=== PATIENT | female | born 1990 | race Caucasian/White ===

== ENCOUNTER 2016-12-19 | Emergency (ER) | payer OTHER | END 2016-12-19 22:20 | disposition home or self-care (01) ==

== ENCOUNTER 2017-04-28 15:27 | Emergency (ER) | payer OTHER ==
[2017-04-28 15:34] VITALS: BP 148/91
--- NOTE | 2017-04-28 15:38 | ED Physician Documentation ---
PD HPI ABD PAIN - Stated complaint Stated Complaint: FREQ URINATION/31WK OB - Chief complaint Chief Complaint: UTI - History obtained from History obtained from: Patient - History of Present Illness Timing - onset: Other (This is a G1 in third trimester with urinary frequency and dysuria and burning since last night without associated fever, flank pain, or significant nausea. No bleeding.) Review of Systems Constitutional: reports: Reviewed and negative Cardiac: reports: Reviewed and negative Respiratory: reports: Reviewed and negative PD PAST MEDICAL HISTORY - Past Medical History Respiratory: Asthma - Past Surgical History Past Surgical History: No - Present Medications Home Medications: Ambulatory Orders Medication Instructions Recorded Confirmed Nitrofurantoin Monohyd/M-Cryst 1 tab PO BID 5 Days 04/28/17 [Macrobid 100 mg Capsule] Pnv95/Ferrous Fumarate/FA 1 tab PO DAILY 04/28/17 04/28/17 [ Tablet] - Allergies Allergies/Adverse Reactions: Allergies Allergy/AdvReac Type Severity Reaction Status Date / Time No Known Drug Allergies Allergy Verified 12/19/16 21:17 - Social History Does the pt smoke?: No Smoking Status: Never smoker Does the pt drink ETOH?: No Does the pt have substance abuse?: No - Immunizations Immunizations are current?: Yes - POLST Patient has POLST: No PD ED PE NORMAL - Vitals Vital signs reviewed: Yes - General General: Alert and oriented X 3, No acute distress - Abdomen Abdomen: Normal bowel sounds, Soft, Non tender, Other (Gravid with IUP on ultrasound, heart rate 130) - Neuro Neuro: Alert and oriented X 3, Normal speech - Psych Psych: Normal mood, Normal affect Results - Vitals Vitals: Vital Signs - 24 hr 04/28/17 15:32 Temperature 36.1 C L Heart Rate 65 Respiratory 20 Rate Blood Pressure 148/91 H O2 Saturation 100 Oxygen O2 Source Room air - Labs Labs: Laboratory Tests 04/28/17 15:40 Urine Color YELLOW Urine Clarity HAZY Urine pH 6.0 Ur Specific Shirley 1.010 Urine Protein NEGATIVE Urine Glucose (UA) NEGATIVE Urine Ketones NEGATIVE Urine Occult Blood MODERATE H Urine Nitrite NEGATIVE Urine Bilirubin NEGATIVE Urine Urobilinogen 0.2 (NORMAL) Ur Leukocyte Esterase NEGATIVE Urine RBC 0-5 Urine WBC 4-5 Ur Squamous Epith Cells MANY Squamous H Urine Bacteria Few Ur Microscopic Review INDICATED Urine Culture Comments NOT INDICATED PD MEDICAL DECISION MAKING - ED course ED course: Symptoms are pretty consistent with acute cystitis, will treat for same despite underwhelming urine. We will culture. Blood pressure noted but no proteinuria.Follow-up advised. Departure - Departure Disposition: 01 Home, Self Care Clinical Impression: Cystitis Condition: Good Record reviewed to determine appropriate education?: Yes Instructions: ED UTI Cystitis Female Prescriptions: Nitrofurantoin Monohyd/M-Cryst [Macrobid 100 mg Capsule] 1 tab PO BID 5 Days Comments: We will culture your urine, the results should be done in 48-72 hours. If an antibiotic change is necessary we will call you. Return if worse in the meantime, especially if you develop increasing flank pain, fevers, or cannot keep down the medication. Your blood pressure was elevated today on check into the emergency department. This does not mean that you have hypertension, it is a common phenomenon to come to the emergency department and have elevated blood pressure. I recommend that she see her primary care physician within the week to have it rechecked when you are feeling better. Call your doctor to arrange a follow-up appointment, make the next available appointment. In the interim, return anytime if worse or if new symptoms develop. Discharge Date/Time: 04/28/17 16:19
[2017-04-28 16:01] LABS: BILIRUBIN,URINE NEGATIVE (NEGATIVE)
[2017-04-28 16:07] LABS: UA w/ MICROSCOPIC CHARGE YES
[2017-04-28] MEDS ORDERED: NITROFURANTOIN MACRO 100 MG CAPSULE PO ONE (16:16)
[2017-04-28] MEDS: NITROFURANTOIN MACRO 100 MG CAPSULE PO STA (16:17)
[2017-04-28 16:38] LABS: UR CULTURE IF IND NOT INDICATED
== END 2017-04-28 16:19 | disposition home or self-care (01) ==
LOC: ED 15:27
DX: O23.13 Infections of bladder in pregnancy, third trimester (principal); N30.90 Cystitis, unspecified without hematuria; O99.513 Diseases of the respiratory system complicating pregnancy, third trimester; J45.909 Unspecified asthma, uncomplicated; O26.893 Other specified pregnancy related conditions, third trimester; R03.0 Elevated blood-pressure reading, without diagnosis of hypertension; Z3A.31 31 weeks gestation of pregnancy
CPT/HCPCS: 81001; 81003; 87086; 99283

== ENCOUNTER 2017-11-26 16:18 | Emergency (ER) | payer OTHER ==
[2017-11-26 16:35] VITALS: BP 110/64
--- NOTE | 2017-11-26 17:11 | XRAY Report ---
EXAM: CHEST RADIOGRAPHY EXAM DATE: 11/26/2017 04:52 PM. CLINICAL HISTORY: Chest congestion . COMPARISON: Chest 2 views 01/14/2014.. TECHNIQUE: 2 views. FINDINGS: Lungs/Pleura: No focal opacities evident. No pleural effusion. No pneumothorax. Normal volumes. Mediastinum: Heart and mediastinal contours are unremarkable. Other: None. IMPRESSION: Normal 2-view chest radiography. [facility] Referring Provider Line: [phone] SITE ID: [id number]
--- NOTE | 2017-11-26 17:40 | ED Physician Documentation ---
History of Present Illness - Stated complaint Stated Complaint: COUGH/CHEST WALL/ BACK PX - Chief complaint Chief Complaint: Resp - Additonal information Additional information: hx from pt 27 f 4 weeks PP breast feeding to ER with cough productive yellow sputum fears pna no shaking chills body aches or GI sx to suggest influenza Review of Systems Constitutional: denies: Fever, Chills, Myalgias Respiratory: reports: Cough : denies: Now EGA Immunocompromised: denies: Immunocompromised PD PAST MEDICAL HISTORY - Past Medical History Past Medical History: Yes Respiratory: Asthma Other Past Medical History: Hx pluracy - Past Surgical History 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 - Present Medications Home Medications: Ambulatory Orders Medication Instructions Recorded Confirmed guaiFENesin/DEXTROMETHORPHAN 10 ml PO Q6H PRN #120 ml 11/26/17 [Robitussin Dm] - Allergies Allergies/Adverse Reactions: Allergies Allergy/AdvReac Type Severity Reaction Status Date / Time No Known Drug Allergies Allergy Verified 11/26/17 16:35 - Social History Does the pt smoke?: No Smoking Status: Never smoker Does the pt drink ETOH?: No Does the pt have substance abuse?: No - Immunizations Immunizations are current?: Yes - POLST Patient has POLST: No PD ED PE NORMAL - Vitals Vital signs reviewed: Yes - Neck Neck: Supple, no meningeal sign - Cardiac Cardiac: RRR - Respiratory Respiratory: No respiratory distress, Other (decreased right base) - Derm Derm: Normal color - Extremities Extremities: No deformity, No edema, No calf tenderness / cord - Neuro Neuro: Alert and oriented X 3 Results - Vitals Vitals: Vital Signs - 24 hr 11/26/17 16:33 Temperature 37.1 C Heart Rate 61 Respiratory 18 Rate Blood Pressure 110/64 O2 Saturation 100 Oxygen O2 Source Room air - Rads (name of study) CXR Radiology: See rad report (neg) Departure - Departure Disposition: 01 Home, Self Care Clinical Impression: Bronchitis Condition: Good Instructions: ED Upper Resp Infec No Abx Tx Prescriptions: guaiFENesin/DEXTROMETHORPHAN [Robitussin Dm] 10 ml PO Q6H PRN #120 ml PRN Reason: Cough Comments: The xray is negative - no pneumonia Robitussin DM is safe in breast feeing and will help ease the cough and also loosen the congestion.
== END 2017-11-26 18:15 | disposition home or self-care (01) ==
LOC: ED 16:18
DX: O99.53 Diseases of the respiratory system complicating the puerperium (principal); J40 Bronchitis, not specified as acute or chronic
CPT/HCPCS: 71046; 99283

== ENCOUNTER 2018-06-13 09:42 | Emergency (ER) | payer OTHER ==
--- NOTE | 2018-06-13 10:08 | ED Physician Documentation ---
PD HPI DYSPNEA - Stated complaint Stated Complaint: SOA/LT SIDE CP - Chief complaint Chief Complaint: Resp - History obtained from History obtained from: Patient - History of Present Illness Timing - onset: How many days ago (6) Timing - onset during: Rest Timing - duration: Days (6) Timing - details: Gradual onset, Still present Inciting event(s): Exposure (ie smoke) Improved by: Inhaler/neb Worsened by: Exertion, Coughing, Other (inhalation) Associated symptoms: Cough, Wheezing, Chest pain / discomfort Similar symptoms before: Diagnosis (pleurisy) Recently seen: Not recently seen - Additional information Additional information: 27-year-old female with a history of asthma has developed pain in her left chest radiating down her left arm about 6 days ago. She states the pain is worse when she takes a deep breath in and she has been using her inhaler more frequently. There is currently a small conversion present. Patient has developed a bit of a cough but it is mild and there is no phlegm. Review of Systems Constitutional: denies: Fever Eyes: denies: Decreased vision Ears: denies: Ear pain Nose: reports: Congestion. denies: Rhinorrhea / runny nose Throat: denies: Sore throat Cardiac: reports: Chest pain / pressure. denies: Palpitations, Pedal edema, Calf pain Respiratory: reports: Dyspnea, Cough, Wheezing GI: denies: Abdominal Pain, Nausea, Vomiting : denies: Dysuria, Frequency Skin: denies: Rash Musculoskeletal: reports: Extremity pain. 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 - Present Medications Home Medications: Ambulatory Orders Medication Instructions Recorded Confirmed guaiFENesin/DEXTROMETHORPHAN 10 ml PO Q6H PRN #120 ml 11/26/17 [Robitussin Dm] Albuterol Sulf [Ventolin Hfa 1 - 2 puffs INH Q4HR PRN #1 inhaler 06/13/18 Inhaler] predniSONE [Deltasone] 10 mg PO DAILY #26 tablet 06/13/18 - Allergies Allergies/Adverse Reactions: Allergies Allergy/AdvReac Type Severity Reaction Status Date / Time No Known Drug Allergies Allergy Verified 11/26/17 16:35 - Social History Does the pt smoke?: No Smoking Status: Never smoker Does the pt drink ETOH?: No Does the pt have substance abuse?: No - Immunizations Immunizations are current?: Yes - POLST Patient has POLST: No PD ED PE NORMAL - Vitals Vital signs reviewed: Yes (hypertensive ) - General General: Alert and oriented X 3, No acute distress, Well developed/nourished - HEENT HEENT: Atraumatic, PERRL, EOMI, Ears normal, Moist mucous membranes, Pharynx benign, Dentition benign - Neck Neck: Supple, no meningeal sign, No bony TTP - Cardiac Cardiac: RRR, No murmur - Respiratory Respiratory: No respiratory distress, Clear bilaterally, Other (There is chest wall tenderness to the left anterior chest wall at the clavicle ) - Abdomen Abdomen: Soft, Non tender - Back Back: No CVA TTP, No spinal TTP - Derm Derm: Normal color, Warm and dry, No rash - Extremities Extremities: No deformity, No edema - Neuro Neuro: Alert and oriented X 3, 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, No motor deficit, No sensory deficit, Normal speech Eye Opening: Spontaneous Motor: Obeys Commands Verbal: Oriented GCS Score: 15 - Psych Psych: Normal mood, Normal affect Results - Vitals Vitals: Vital Signs - 24 hr 06/13/18 09:47 Temperature 36.3 C L Heart Rate 50 L Respiratory 16 Rate Blood Pressure 132/97 H O2 Saturation 100 Oxygen O2 Source Room air - EKG (time done) 0955 Rate: Rate (enter#) (49) Rhythm: Sinus bradycardia Ischemia: Normal ST segments Compare to prior EKG: Old EKG unavailable Computer interpretation: Agree with computer - Labs Labs: Laboratory Tests 06/13/18 06/13/18 06/13/18 10:24 10:24 10:24 WBC 6.2 RBC 4.30 Hgb 13.5 Hct 38.3 MCV 89.2 MCH 31.3 H MCHC 35.1 RDW 12.8 Plt Count 259 MPV 7.0 L Neut # (Auto) 3.8 Lymph # (Auto) 1.9 Placer # (Auto) 0.3 Eos # (Auto) 0.1 Baso # (Auto) 0.0 Absolute Nucleated RBC 0.01 Nucleated RBC % 0.1 Sodium 138 Potassium 4.3 Chloride 104 Carbon Dioxide 27 Anion Gap 7.0 BUN 15 Creatinine 0.5 Estimated GFR (MDRD) 146 Glucose 99 Calcium 9.4 Total Bilirubin 0.9 AST 17 ALT 15 Alkaline Phosphatase 63 Troponin I < 0.04 Total Protein 7.8 Albumin 4.7 Globulin 3.1 Albumin/Globulin Ratio 1.5 Lipase 37 - Rads (name of study) 2 veiw chest Radiology: Prelim report reviewed (Impression: Normal two-view chest radiography stable compared with 11/26/2017.), EMP read indepedently, See rad report PD MEDICAL DECISION MAKING - ED course Complexity details: reviewed results, re-evaluated patient, considered differential, d/w patient ED course: 27-year-old female with a history of asthma has had difficulty with her breathing for the past 6 days during a smoke conversion and she has chest wall tenderness and pleurisy or pleuritic chest pain. She is administered Dexamethasone here in the emergency department we will put her on a course of prednisone and give her another inhaler. - Sepsis Event Vital Signs: Vital Signs - 24 hr 06/13/18 09:47 Temperature 36.3 C L Heart Rate 50 L Respiratory 16 Rate Blood Pressure 132/97 H O2 Saturation 100 Oxygen O2 Source Room air Departure - Departure Disposition: Home, Self Care Clinical Impression: Reactive airway disease with acute exacerbation Qualifiers: Asthma severity: mild Asthma persistence: intermittent Qualified Code(s): J45.21 - Mild intermittent asthma with (acute) exacerbation Instructions: ED Reactive Airway Disease Follow-Up: DEWAYNE IVORY [Primary Care Provider] - Prescriptions: Albuterol Sulf [Ventolin Hfa Inhaler] 1 - 2 puffs INH Q4HR PRN #1 inhaler PRN Reason: Shortness Of Air/Wheezing predniSONE [Deltasone] 10 mg PO DAILY #26 tablet
[2018-06-13] MEDS ORDERED: DEXAMETHASONE 10 MG/ML VIAL PO STA (10:20)
[2018-06-13 10:32] LABS: BASOPHILS % (AUTO) 0.6 %; EOSINOPHILS # (AUTO) 0.1 10^3/uL (0.0-0.7); EOSINOPHILS % (AUTO) 1.8 %; HGB - HEMOGLOBIN 13.5 g/dL (12.0-16.0); LYMPHOCYTES # (AUTO) 1.9 10^3/uL (1.5-3.5); MEAN CORPUSCULAR HEMOGLOBIN 31.3 pg (27.0-31.0); MEAN CORPUSCULAR HGB CONC 35.1 g/dL (32.0-36.0); MEAN CORPUSCULAR VOLUME 89.2 fL (81.0-99.0); MONOCYTES # (AUTO) 0.3 10^3/uL (0.0-1.0); MONOCYTES % (AUTO) 5.4 %; NEUTROPHILS # (AUTO) 3.8 10^3/uL (1.5-6.6); NEUTROPHILS % (AUTO) 61.2 %; PLT - PLATELET COUNT 259 10^3/uL (130-450); RED CELL DISTRIBUTION WIDTH 12.8 % (12.0-15.0); WHITE BLOOD COUNT 6.2 x10^3/uL (4.8-10.8)
--- NOTE | 2018-06-13 10:44 | XRAY Report ---
Reason: left upper chest pain/cough wheeze Procedure Date: 06/13/2018 Accession Number: [id number] / [id number] Procedure: XR - Chest 2 View X-Ray CPT Code: 03936 FULL RESULT: EXAM: CHEST RADIOGRAPHY EXAM DATE: 06/13/2018 10:34 AM. CLINICAL HISTORY: Cough and congestion COMPARISON: 11/26/2017. TECHNIQUE: 2 views. FINDINGS: Lungs/Pleura: No focal opacities evident. No pleural effusion. No pneumothorax. Normal volumes. Mediastinum: Heart and mediastinal contours are unremarkable. Other: Negative bony structures. IMPRESSION: Normal 2-view chest radiography stable compared with 11/26/2017. [facility]
[2018-06-13 10:45] LABS: ALBUMIN 4.7 g/dL (3.2-5.5); ALBUMIN/GLOBULIN RATIO 1.5 (1.0-2.2); BILIRUBIN,TOTAL 0.9 mg/dL (0.2-1.0); CALCIUM 9.4 mg/dL (8.5-10.3); CREATININE 0.5 mg/dL (0.4-1.0); TOTAL PROTEIN 7.8 g/dL (6.7-8.2)
[2018-06-13 11:11] VITALS: BP 119/77
== END 2018-06-13 11:27 | disposition home or self-care (01) ==
LOC: ED 09:42
DX: J45.21 Mild intermittent asthma with (acute) exacerbation (principal)
CPT/HCPCS: 36415; 71046; 80053; 83690; 84484; 85025; 93005; 99283

== ENCOUNTER 2018-08-28 07:34 | Emergency (ER) | payer OTHER ==
[2018-08-28 07:46] VITALS: BP 114/58
[2018-08-28] MEDS ORDERED: DEXAMETHASONE 10 MG/ML VIAL PO STA (08:12)
--- NOTE | 2018-08-28 08:15 | ED Physician Documentation ---
PD HPI URI - Stated complaint Stated Complaint: COUGHING MUCUS - Chief complaint Chief Complaint: General - History obtained from History obtained from: Patient - History of Present Illness Timing - onset: How many weeks ago (1) Timing duration: Weeks (1) Timing details: Gradual onset, Still present Associated symptoms: Fever, Nasal congestion, Sinus pain, Productive cough Improves by: Rest, Medication Worsened by: Activity Similar symptoms before: Diagnosis (asthmatic bronchitis) Recently seen: Clinic - Additional information Additional information: 28-year-old female with a one-week history of cough and congestion has been coughing up yellow and green phlegm and this is been persistent she is missed several days of work. She has had something similar to this over the summer when there was an inversion and this required a course of prednisone. She states she cleared up with that quite well and she was given an inhaler at that time and used it then and felt that when she used it this time it really did not help that much. She does not feel significantly short of breath. She does have a lot of pressure in her sinuses. Review of Systems Constitutional: reports: Fever, Chills Eyes: denies: Decreased vision Ears: denies: Ear pain Nose: reports: Rhinorrhea / runny nose, Congestion, Sinus pressure / pain Throat: denies: Sore throat Cardiac: denies: Chest pain / pressure, Palpitations Respiratory: reports: Cough. 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 Medications Home Medications: Ambulatory Orders Medication Instructions Recorded Confirmed guaiFENesin/DEXTROMETHORPHAN 10 ml PO Q6H PRN #120 ml 11/26/17 [Robitussin Dm] Albuterol Sulf [Ventolin Hfa 1 - 2 puffs INH Q4HR PRN #1 inhaler 06/13/18 Inhaler] predniSONE [Deltasone] 10 mg PO DAILY #26 tablet 06/13/18 Amox/Clav 875/125 [Augmentin] 1 each PO Q12H #20 tablet 08/28/18 - Allergies Allergies/Adverse Reactions: Allergies Allergy/AdvReac Type Severity Reaction Status Date / Time No Known Drug Allergies Allergy Verified 08/28/18 07:47 - Social History Does the pt smoke?: No Smoking Status: Never smoker Does the pt drink ETOH?: No Does the pt have substance abuse?: No - Immunizations Immunizations are current?: Yes - POLST Patient has POLST: No PD ED PE NORMAL - Vitals Vital signs reviewed: Yes (normal ) - General General: Alert and oriented X 3, No acute distress, Well developed/nourished - HEENT HEENT: Atraumatic, PERRL, EOMI, Other (There is minimal inflamation in the left TM. The right is clear. There is bilateral sinus point tenderness over the maxillary sinus .) - Neck Neck: Supple, no meningeal sign, No bony TTP - Cardiac Cardiac: RRR, No murmur - Respiratory Respiratory: No respiratory distress, Clear bilaterally - Abdomen Abdomen: Soft, Non tender - Back Back: No CVA TTP, No spinal TTP - Derm Derm: Normal color, Warm and dry, No rash - Extremities Extremities: No deformity, No edema - Neuro Neuro: Alert and oriented X 3, No motor deficit, No sensory deficit, Normal speech Eye Opening: Spontaneous Motor: Obeys Commands Verbal: Oriented GCS Score: 15 - Psych Psych: Normal mood, Normal affect Results - Vitals Vitals: Vital Signs - 24 hr 08/28/18 07:38 Temperature 37.1 C Heart Rate 88 Respiratory 16 Rate Blood Pressure 114/58 L O2 Saturation 97 Oxygen O2 Source Room air PD MEDICAL DECISION MAKING - ED course Complexity details: considered differential, d/w patient ED course: 28-year-old female with a one-week history of cough and congestion has sinus point tenderness on examination and I have diagnosed her with sinusitis we have given her a dose of dexamethasone we will place her on a course of Augmentin. Departure - Departure Disposition: 01 Home, Self Care Clinical Impression: Sinusitis Qualifiers: Sinusitis location: maxillary Chronicity: acute Recurrence: not specified as recurrent Qualified Code(s): J01.00 - Acute maxillary sinusitis, unspecified Condition: Stable Instructions: ED Sinusitis Abx Tx Follow-Up: DEWAYNE IVORY [Primary Care Provider] - Prescriptions: Amox/Clav 875/125 [Augmentin] 1 each PO Q12H #20 tablet Forms: Activity restrictions
[2018-08-28] MEDS ORDERED: CHERRY SYRUP 10 ML UDC PO ONE (08:29)
== END 2018-08-28 08:33 | disposition home or self-care (01) ==
LOC: ED 07:34
DX: J01.00 Acute maxillary sinusitis, unspecified (principal); J45.909 Unspecified asthma, uncomplicated; Z79.899 Other long term (current) drug therapy
CPT/HCPCS: 99283; A9270

== ENCOUNTER 2019-08-25 11:46 | Emergency (ER) | payer OTHER ==
[2019-08-25] MEDS ORDERED: KETOROLAC 60 MG/2 ML VIAL IM STA (12:13)
[2019-08-25] MEDS ORDERED: predniSONE 20 MG TABLET PO STA (12:13)
--- NOTE | 2019-08-25 12:15 | ED Physician Documentation ---
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 Its a pain in the very low back but spasming and radiating down both legs with some weakness but no numbness, tingling, saddle anesthesia, or fevers. No possibility of . 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 Medications Home Medications: Ambulatory Orders Medication Instructions Recorded Confirmed predniSONE [Deltasone] 20 mg PO [id number] #21 tab 08/25/19 - Allergies Allergies/Adverse Reactions: Allergies Allergy/AdvReac Type Severity Reaction Status Date / Time No Known Drug Allergies Allergy Verified 08/25/19 11:50 - Social History Does the pt smoke?: No Smoking Status: Never smoker Does the pt drink ETOH?: No Does the pt have substance abuse?: No - Immunizations Immunizations are current?: Yes - POLST Patient has POLST: No PD ED PE NORMAL - Vitals Vital signs reviewed: Yes - General General: Alert and oriented X 3, No acute distress - Back Back: No CVA TTP, No spinal TTP - Extremities Extremities: Other (Slightly decreased strength in flexion of the left foot but symmetric sensation throughout both legs and equal and symmetric and normal Achilles and patellar reflexes) - Neuro Neuro: Alert and oriented X 3, Normal speech Results - Vitals Vitals: Vital Signs - 24 hr 08/25/19 11:48 Temperature 36.5 C Heart Rate 62 Respiratory 18 Rate Blood Pressure 126/78 O2 Saturation 100 Oxygen O2 Source Room air Departure - Departure Disposition: 01 Home, Self Care Clinical Impression: Acute exacerbation of chronic low back pain Condition: Good Record reviewed to determine appropriate education?: Yes Instructions: ED Neck Back Pain General Prescriptions: predniSONE [Deltasone] 20 mg PO [id number] #21 tab Comments: Call your doctor to arrange a follow-up appointment, make the next available appointment. In the interim, return anytime if worse or if new symptoms develop.
[2019-08-25 12:42] VITALS: BP 122/62
== END 2019-08-25 12:42 | disposition home or self-care (01) ==
LOC: ED 11:46
DX: M54.5 Low back pain (principal); G89.29 Other chronic pain
CPT/HCPCS: 99283; J7512

== ENCOUNTER 2019-10-02 07:13 | Outpatient (CLI) | payer OTHER ==
--- NOTE | 2019-10-02 13:40 | MRI Report ---
Reason: LOW BACK PAIN Procedure Date: 10/02/2019 Accession Number: [id number] / [id number] Procedure: MRI - Hip RT W/O CPT Code: Final Report FULL RESULT: EXAM: RIGHT HIP MRI WITHOUT CONTRAST EXAM DATE: 10/02/2019 09:00 AM. CLINICAL HISTORY: Low back pain. Bilateral hip pain. COMPARISON: None. TECHNIQUE: Multiplanar, multisequence T1-weighted and fluid-sensitive, small ejewq-zq-czuw sequences of the hip and large fvywy-bp-ucfr sequences of the pelvis without contrast. Other: None. FINDINGS: Bones: No fractures or subluxations. No marrow edema or bone lesions. Right/left Hip: No acetabular retroversion. Femoral head/neck offset is within normal limits. No effusion or loose bodies. The articular cartilage is intact. Partial tear superior and posterior superior right hip acetabular labrum. The ligamentum teres is intact. Other Joints: The visualized lumbar spine, sacroiliac joints, symphysis pubis, and contralateral hip are unremarkable. Musculature: No edema or fatty atrophy. The gluteus medius and minimus tendons are normal. The visualized hamstring tendons are normal. The ischiofemoral space is normal. Pelvic Cavity: The visualized viscera are unremarkable. No lymphadenopathy. Small quantity of pelvic free fluid. Other: The visualized sciatic nerves are unremarkable. No bursitis. The subcutaneous tissues are unremarkable. IMPRESSION: Probable partial tear superior and posterior superior right hip acetabular labrum. [facility]
--- NOTE | 2019-10-02 13:47 | MRI Report ---
Reason: LOW BACK PAIN Procedure Date: 10/02/2019 Accession Number: [id number] / [id number] Procedure: MRI - Lumbar Spine W/O CPT Code: Final Report FULL RESULT: EXAM: MRI LUMBAR SPINE WITHOUT CONTRAST EXAM DATE: 10/02/2019 08:20 AM. CLINICAL HISTORY: low back pain. COMPARISON: None. TECHNIQUE: Multiplanar, multisequence T1-weighted and fluid-sensitive sequences of the lumbar spine from T12 to S1 without contrast. Other: None. FINDINGS: Spinal Canal: The conus terminates at T12-L1. The conus medullaris and cauda equina are unremarkable. Alignment: Minimal thoracolumbar curvature convex right. Normal alignment. No spondylolisthesis. Bone Marrow: Five waa-kfp-yhrvmqr lumbar vertebral bodies are assumed. No acute fracture. No destructive bone lesion. High T1 signal 1.8 cm lesion at the L2 vertebral body consistent with hemangioma. Diskogenic endplate edema, as well as small amount of sclerotic change at L5-S1. Disk Levels/Facets: T12-L1: Unremarkable. L1-L2: Unremarkable. L2-L3: Unremarkable. L3-L4: Unremarkable. L4-L5: Unremarkable. L5-S1: Mild to moderate disk height loss and dehydration. Annular disk bulge with small broad-based left foraminal protrusion. Mild left foraminal stenosis. Musculature: Normal. No edema or fatty atrophy. Other: The partially visualized retroperitoneum is unremarkable. IMPRESSION: 1. L5-S1 degenerative disk change with associated diskogenic endplate edema. Mild left foraminal stenosis. Comment: The following findings are so common in adults without low back pain that while we report their presence, they must be interpreted with caution and in the context of the clinical situation. (Reference Karenk et al, Spine 2001) Prevalence of findings in patients without low back pain: Disk degeneration (any evidence): 92% Disk desiccation/T2 signal loss: 83% Disk height loss: 56% Disk bulge: 64% Disk protrusion: 32% Annular tear/high intensity zone: 38% [facility]
--- NOTE | 2019-10-02 13:49 | MRI Report ---
Reason: LOW BACK PAIN Procedure Date: 10/02/2019 Accession Number: [id number] / [id number] Procedure: MRI - Hip LT W/O CPT Code: Final Report FULL RESULT: EXAM: LEFT HIP MRI WITHOUT CONTRAST EXAM DATE: 10/02/2019 09:28 AM. CLINICAL HISTORY: Low back pain. Bilateral hip pain. COMPARISON: MRI right hip 10/02/2019. TECHNIQUE: Multiplanar, multisequence T1-weighted and fluid-sensitive, small izimp-st-dsth sequences of the hip and large zggap-vy-czdm sequences of the pelvis without contrast. Other: None. FINDINGS: Bones: No fractures or subluxations. No marrow edema or bone lesions. Left Hip: No acetabular retroversion. Femoral head/neck offset is within normal limits. No effusion or loose bodies. The articular cartilage is intact. Intermediate signal partial-thickness defect superior left hip acetabular labrum (image 13 series 8). The ligamentum teres is intact. Other Joints: The visualized lumbar spine, sacroiliac joints, symphysis pubis, and contralateral hip are unremarkable. Musculature: No edema or fatty atrophy. The gluteus medius and minimus tendons are normal. The visualized hamstring tendons are normal. The ischiofemoral space is normal. Pelvic Cavity: The visualized viscera are unremarkable. No lymphadenopathy. No free fluid in the pelvis. Other: The visualized sciatic nerves are unremarkable. No bursitis. The subcutaneous tissues are unremarkable. IMPRESSION: Possible partial tear superior left hip acetabular labrum (image 14 series 801). MR arthrogram for confirmation. [facility]
== END 2019-10-02 07:14 | disposition home or self-care (01) ==
LOC: DI 07:13
PROVIDERS: ATTEND Student in an Organized Health Care Education/Training Program
DX: M51.37 Other intervertebral disc degeneration, lumbosacral region (principal); M25.559 Pain in unspecified hip
CPT/HCPCS: 72148

== ENCOUNTER 2020-01-11 12:07 | Emergency (ER) | payer OTHER ==
[2020-01-11 12:22] VITALS: BP 122/75
--- NOTE | 2020-01-11 12:30 | ED Physician Documentation ---
History of Present Illness - Stated complaint Stated Complaint: FEMALE - Chief complaint Chief Complaint: Ext Problem - History obtained from History obtained from: Patient (Started to have malodorous urine yesterday and more dysuria and suprapubic pain today. There is very mild nausea. This would be may be her third UTI in her life.) Review of Systems Constitutional: denies: Fever, Chills GI: reports: Nausea. 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: section, Tubal ligation - Present Medications Home Medications: Ambulatory Orders Medication Instructions Recorded Confirmed Multivitamin [Multiple Vitamins] 01/11/20 Sulfamethoxazole/Trimethoprim 1 each PO BID 7 Days #14 tablet 01/11/20 [Sulfamethoxazole-Tmp Ds Tablet] - Allergies Allergies/Adverse Reactions: Allergies Allergy/AdvReac Type Severity Reaction Status Date / Time No Known Drug Allergies Allergy Verified 01/11/20 12:22 - Social History Does the pt smoke?: No Smoking Status: Never smoker Does the pt drink ETOH?: Yes Does the pt have substance abuse?: No - Immunizations Immunizations are current?: Yes - POLST Patient has POLST: No PD ED PE NORMAL - Vitals Vital signs reviewed: Yes - General General: Alert and oriented X 3, No acute distress - Abdomen Abdomen: Normal bowel sounds, Soft, Non tender - Back Back: Other (Very mild right CVA tenderness) - Neuro Neuro: Alert and oriented X 3, Normal speech Results - Vitals Vitals: Vital Signs - 24 hr 01/11/20 12:19 Temperature 37.2 C Heart Rate 68 Respiratory 18 Rate Blood Pressure 122/75 O2 Saturation 99 Oxygen O2 Source Room air - Labs Labs: Laboratory Tests 01/11/20 12:22 Urine Color RED/BLOODY Urine Clarity HAZY Urine pH 6.0 Ur Specific [place] 1.020 Urine Protein 100 H Urine Glucose (UA) NEGATIVE Urine Ketones NEGATIVE Urine Occult Blood LARGE H Urine Nitrite NEGATIVE Urine Bilirubin NEGATIVE Urine Urobilinogen 0.2 (NORMAL) Ur Leukocyte Esterase TRACE H Urine RBC TNTC H Urine WBC 6-10 H Urine WBC Clumps PRESENT Ur Squamous Epith Cells FEW Squamous Urine Bacteria Few Ur Microscopic Review INDICATED Urine Culture Comments INDICATED Urine HCG, Qual NEGATIVE Departure - Departure Disposition: 01 Home, Self Care Clinical Impression: Pyelonephritis Condition: Good Record reviewed to determine appropriate education?: Yes Instructions: Pyelonephritis Dc Prescriptions: Sulfamethoxazole/Trimethoprim [Sulfamethoxazole-Tmp Ds Tablet] 1 each PO BID 7 Days #14 tablet Comments: We will culture your urine, the results should be done in 48-72 hours. If an antibiotic change is necessary we will call you. Return if worse in the meantime, especially if you develop increasing flank pain, fevers, or cannot keep down the medication.
[2020-01-11 12:39] LABS: BILIRUBIN,URINE NEGATIVE (NEGATIVE); GLUCOSE, URINE (UA) NEGATIVE (NEGATIVE); KETONES,URINE (UA) NEGATIVE (NEGATIVE); LEUKOCYTE ESTERASE, URINE TRACE (NEGATIVE); NITRITE,URINE NEGATIVE (NEGATIVE); OCCULT BLOOD,URINE LARGE (NEGATIVE); PROTEIN,URINE 100 mg/dL (NEGATIVE); UROBILINOGEN,URINE 0.2 (NORMAL) E.U./dL (NORMAL)
[2020-01-11 12:43] LABS: CLARITY,URINE HAZY (CLEAR); HCG UR QUAL NEGATIVE; RBC,URINE TNTC /HPF (0-5); WBC CLUMPS,URINE PRESENT
[2020-01-11 12:44] LABS: BACTERIA,URINE Few /HPF (None Seen); SQUAMOUS EPITHELIAL CELL,UR FEW Squamous (<= Few)
[2020-01-11] MEDS ORDERED: SULFAMETH/TRIMETH DS 800/160 MG TABLET PO STA (12:49)
== END 2020-01-11 12:56 | disposition home or self-care (01) ==
LOC: ED 12:07
DX: N12 Tubulo-interstitial nephritis, not specified as acute or chronic (principal)
CPT/HCPCS: 81001; 81025; 87086; 87181; 99283; A9270; 81003

== ENCOUNTER 2020-07-04 17:00 | Emergency (ER) | payer OTHER ==
--- NOTE | 2020-07-04 17:53 | ED Physician Documentation ---
PD HPI HEAD INJURY - Stated complaint Stated Complaint: HEAD INJ - Chief complaint Chief Complaint: Trauma Hd/Nk - History obtained from History obtained from: Patient - Additional information Additional information: About 3 hours ago her horse pushed her over. She hit her head over the right muslim with positive loss of consciousness and has had a progressive albeit still mild headache since then. No nausea or visual difficulty. No possibility of . 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, Tubal ligation - Present Medications Home Medications: Ambulatory Orders Medication Instructions Recorded Confirmed Multivitamin [Multiple Vitamins] 01/11/20 Sulfamethoxazole/Trimethoprim 1 each PO BID 7 Days #14 tablet 01/11/20 [Sulfamethoxazole-Tmp Ds Tablet] - Allergies Allergies/Adverse Reactions: Allergies Allergy/AdvReac Type Severity Reaction Status Date / Time No Known Drug Allergies Allergy Verified 07/04/20 17:22 - Social History Does the pt smoke?: No Smoking Status: Never smoker Does the pt drink ETOH?: Yes Does the pt have substance abuse?: No - Immunizations Immunizations are current?: Yes - POLST Patient has POLST: No PD ED PE NORMAL - Vitals Vital signs reviewed: Yes - General General: Alert and oriented X 3, No acute distress - HEENT HEENT: PERRL, EOMI, Other (small hematoma Right muslim, nontender) - Neck Neck: No bony TTP - Neuro Neuro: Alert and oriented X 3, Normal speech Results - Vitals Vitals: Vital Signs - 24 hr 07/04/20 17:18 Temperature 37.6 C H Heart Rate 56 L Respiratory 16 Rate Blood Pressure 134/69 H O2 Saturation 100 Oxygen O2 Source Room air - Rads (name of study) CT of the head without contrast Radiology: EMP read contemporaneously (Normal) Departure - Departure Disposition: 01 Home, Self Care Clinical Impression: Concussion Qualifiers: Encounter type: initial encounter Loss of consciousness presence/duration: with LOC of 30 min or less Qualified Code(s): S06.0X1A - Concussion with loss of consciousness of 30 minutes or less, initial encounter Condition: Good Record reviewed to determine appropriate education?: Yes Instructions: ED Head Injury Closed Comments: Follow-up with your doctor if symptoms are persistent. Return if worse.
--- NOTE | 2020-07-04 18:29 | CT Report ---
PROCEDURE: HEAD WO INDICATIONS: head inj TECHNIQUE: Noncontrast 4.5 mm thick angled axial sections acquired from the foramen magnum to the vertex. For r adiation dose reduction, the following was used: automated exposure control, adjustment of mA and/or kV according to patient size. COMPARISON: None. FINDINGS: Image quality: Excellent. CSF spaces: Basal cisterns are patent. No extra-axial fluid collections. Ventricles are normal in size and shape. Brain: No midline shift. No intracranial masses or hemorrhage. Bah-white matter interface is norm al. Skull and face: Calvarium and visualized facial bones are intact, without suspicious lesions. Sinuses: Visualized sinuses and mastoids are clear. IMPRESSION: 1. No CT evidence of acute intracranial trauma. 2. No skull fracture. Reviewed by: Nandini Vicente MD on 07/04/2020 6:27 PM PDT Approved by: Nandini Vicente MD on 07/04/2020 6:27 PM PDT Station ID: [id number]
[2020-07-04 18:40] VITALS: BP 119/78
== END 2020-07-04 18:40 | disposition home or self-care (01) ==
LOC: ED 17:00
DX: S06.0X1A Concussion with loss of consciousness of 30 minutes or less, initial encounter (principal); W55.12XA Struck by horse, initial encounter
CPT/HCPCS: 70450; 99282; 99284

== ENCOUNTER 2022-01-18 18:27 | Emergency (ER) | payer OTHER ==
--- NOTE | 2022-01-18 19:16 | XRAY Report ---
PROCEDURE: Ankle 3 View RT INDICATIONS: Trauma TECHNIQUE: 3 views of the ankle were acquired. COMPARISON: None. FINDINGS: Bones: No fractures or dislocations. Ankle mortise is normally aligned. No suspicious bony lesions . Soft tissues: No tibiotalar joint effusion. Achilles tendon appears normal. IMPRESSION: No acute osseous abnormalities. If clinical symptoms persist, a follow-up examination ca n be obtained in 7-10 days, or if clinically indicated, CT or MRI may be helpful. Reviewed by: Jaqui Estrada MD on 01/18/2022 7:14 PM PDT Approved by: Jaqui Estrada MD on 01/18/2022 7:14 PM PDT Station ID: [id number]
--- NOTE | 2022-01-18 19:17 | XRAY Report ---
PROCEDURE: Foot 3 View RT INDICATIONS: Trauma TECHNIQUE: 3 views of the foot were acquired. COMPARISON: None. FINDINGS: Bones: No fractures or dislocations. No suspicious bony lesions. Soft tissues: No tibiotalar joint effusion. Achilles tendon appears normal. IMPRESSION: No acute osseous abnormalities. If clinically symptoms persist, a follow-up examination may be obtain ed in 7-10 days. Reviewed by: Jaqui Estrada MD on 01/18/2022 7:16 PM PDT Approved by: Jaqui Estrada MD on 01/18/2022 7:16 PM PDT Station ID: [id number]
--- NOTE | 2022-01-18 19:29 | ED Physician Documentation ---
History of Present Illness - Stated complaint Stated Complaint: RIGHT FOOT PAIN - Chief complaint Chief Complaint: Ext Problem - Additonal information Additional information: 31-year-old female presents emergency department for evaluation acute right foot pain sustained when her horse accidentally stepped on her foot while she was wearing boots. No other associated injury. No history of previous injury to this foot. 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, Tubal ligation - Present Medications Home Medications: Ambulatory Orders Medication Instructions Recorded Confirmed No Known Home Medications 01/18/22 01/18/22 - Allergies Allergies/Adverse Reactions: Allergies Allergy/AdvReac Type Severity Reaction Status Date / Time No Known Drug Allergies Allergy Verified 01/18/22 18:32 - Social History Does the pt smoke?: No Smoking Status: Never smoker Does the pt drink ETOH?: Yes Does the pt have substance abuse?: No - Immunizations Immunizations are current?: Yes - POLST Patient has POLST: No PD ED PE EXPANDED - General General: Alert, No acute distress - Extremities Extremities: Right foot (Ecchymosis on the dorsum of the foot. Tenderness over the distal third fourth and fifth metatarsals. No pain at the base of the fifth metatarsal. Full range of motion of the ankle in all planes.) Results - Vitals Vitals: Vital Signs - 24 hr 01/18/22 18:33 Temperature 36.4 C L Heart Rate 58 L Respiratory 18 Rate Blood Pressure 146/86 H O2 Saturation 98 Oxygen O2 Source Room air - Rads (name of study) right foot/ankle Radiology: Final report received PD MEDICAL DECISION MAKING - ED course Complexity details: reviewed results, considered differential, d/w patient ED course: 31-year-old female presents emergency department for evaluation of acute right foot pain after her horse accidentally stepped on the dorsum of her foot. She does present with some bruising and tenderness over the distal third fourth and fifth metatarsals. She is able to bear partial weight. X-ray of the foot and ankle is unremarkable. Patient is given a postop shoe and crutches. Advised nonweightbearing for the next 2 to 3 days but then to attempt to bear weight slowly. If not improved over 7 to 10 days would benefit from repeat imaging to rule out occult fracture. Patient is comfortable with this plan and discharge instructions. Emergent return precautions discussed Departure - Departure Disposition: 01 Home, Self Care Clinical Impression: Contusion of right foot Qualifiers: Encounter type: initial encounter Qualified Code(s): S90.31XA - Contusion of right foot, initial encounter Condition: Stable Record reviewed to determine appropriate education?: Yes Instructions: ED Contusion Lower Extr Ch Comments: Lawanda the x-ray of your foot and ankle do not show any obviously broken bones. I suspect based on her exam at the bedside that you most likely have a contusion or bruising of the foot. Over the next 2 to 3 days I would like you to take Tylenol and ibuprofen [id number] for foot pain and discomfort. You can ice the foot for 10 minutes 2-3 times a day. In general I would expect a contusion to have improved pain and swelling over the next 7 to 10 days. If your symptoms are not markedly better in your ability to bear weight and walk is not improve then you should return to the ER for a second evaluation to rule out an occult fracture of this foot.
[2022-01-18 19:38] VITALS: BP 112/76
== END 2022-01-18 19:47 | disposition home or self-care (01) ==
LOC: ED 18:27
DX: S90.31XA Contusion of right foot, initial encounter (principal); W55.19XA Other contact with horse, initial encounter
CPT/HCPCS: 99282; 99283

== ENCOUNTER 2022-07-24 15:28 | Emergency (ER) | payer OTHER ==
[2022-07-24 15:49] VITALS: BP 115/72
--- NOTE | 2022-07-24 16:04 | XRAY Report ---
PROCEDURE: Chest 1 View X-Ray INDICATIONS: R sided chest pain TECHNIQUE: One view of the chest was acquired. COMPARISON: None FINDINGS: Surgical changes and devices: None. Lungs and pleura: No pleural effusions or pneumothorax. Lungs are clear. Mediastinum: Mediastinal contours appear normal. Heart size is normal. Bones and chest wall: No suspicious bony lesions. Overlying soft tissues appear unremarkable. IMPRESSION: No acute cardiopulmonary pathology. Reviewed by: Arley Davies MD on 07/24/2022 4:03 PM PDT Approved by: Arley Davies MD on 07/24/2022 4:03 PM PDT Station ID: [id number]
[2022-07-24] MEDS ORDERED: CHERRY SYRUP 10 ML UDC PO ONE (17:47)
[2022-07-24] MEDS ORDERED: DEXAMETHASONE 10 MG/ML VIAL PO STA (17:47)
--- NOTE | 2022-07-24 17:47 | ED Physician Documentation ---
History of Present Illness - Stated complaint Stated Complaint: R LUNG PX - Chief complaint Chief Complaint: Resp - Additonal information Additional information: 32-year-old female presents emergency department for evaluation of cough that b dev about 5 weeks ago. Initially she had low-grade fevers she is also had a lot of congestion. She did see her [facility] about 1 week ago and was started on amoxicillin for presumption of pneumonia. She is nearly finished that course but 2 days ago she noticed focal pain on the right lower anterior rib wall. She denies that it began after a coughing fit but she is unsure. No falls or trauma. No hypoxia. No recent travel, unilateral leg swelling, no OCP use, no history of DVT or cancer. Patient is PERC negative. 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, Tubal ligation - Present Medications Home Medications: Ambulatory Orders Medication Instructions Recorded Confirmed No Known Home Medications 01/18/22 01/18/22 - Allergies Allergies/Adverse Reactions: Allergies Allergy/AdvReac Type Severity Reaction Status Date / Time No Known Drug Allergies Allergy Verified 07/24/22 15:49 - Social History Does the pt smoke?: No Smoking Status: Never smoker Does the pt drink ETOH?: Yes Does the pt have substance abuse?: No - Immunizations Immunizations are current?: Yes - POLST Patient has POLST: No PD ED PE NORMAL - General General: Alert and oriented X 3, No acute distress - HEENT HEENT: PERRL, Ears normal, Moist mucous membranes, Pharynx benign - Neck Neck: Supple, no meningeal sign, No adenopathy - Cardiac Cardiac: RRR, No murmur, No gallop, Other (Focal tenderness with palpation of the right lower anterior rib wall. No ecchymosis or crepitus.) - Respiratory Respiratory: No respiratory distress, Clear bilaterally - Abdomen Abdomen: Normal bowel sounds, Soft, Non tender, Non distended Results - Vitals Vitals: Vital Signs - 24 hr 07/24/22 15:45 Temperature 36.3 C L Heart Rate 62 Respiratory 14 Rate Blood Pressure 115/72 O2 Saturation 98 Oxygen O2 Source Room air - Rads (name of study) cxr Radiology: Final report received (No acute cardiopulmonary pathology) PD MEDICAL DECISION MAKING - ED course Complexity details: reviewed results, considered differential, d/w patient ED course: Well-appearing 32-year-old female presents emergency department for evaluation of right lower anterior chest wall pain that began about 2 days ago. This is preceded by about 5 weeks of coughing. She did see [facility] that a week ago and was started presumptively on amoxicillin for suspected pneumonia. Today's chest x-ray is entirely unremarkable. The chest pain is entirely reproducible and given the duration of the cough I suspect she has chest wall rib wall strain. She is PERC negative. Here in the emergency department she was administered 10 mg of Decadron. I making the recommendation to use ibuprofen for further discomfort. will follow- up with [facility]. Otherwise emergent return precautions discussed. Departure - Departure Disposition: Home, Self Care Clinical Impression: Chest wall pain Condition: Stable Record reviewed to determine appropriate education?: Yes Instructions: ED Strain Chest Wall Ch Comments: Kait you are seen today in the emergency department because you have had a cough for about 5 weeks and you developed acute pain on your right lower anterior rib wall. I suspect that with the coughing over the last 5 weeks you have developed a rib or chest wall strain. Your chest x-ray is entirely normal. No pneumonia no pneumothorax, no obvious rib fracture. You can stop the amoxicillin. Because you are no longer bringing up a lot of secretions I also recommend that he stop the Mucinex. We did give you a one- time dose of an oral steroid here in the emergency department that can help with the chest wall inflammation and pain. Tomorrow I recommend you begin taking ibuprofen 600 mg with food. In general I would expect this to be getting better over the next week to 10 days as your cough begins to improve. Return to the ER for any severe respiratory distress, chest pain fainting or difficulty breathing
== END 2022-07-24 18:27 | disposition home or self-care (01) ==
LOC: ED 15:28
DX: R07.89 Other chest pain (principal)
CPT/HCPCS: 71045; 99282; 99283; A9270